=== PATIENT | male | born 1995 | race Two or more races ===

== ENCOUNTER 2021-01-11 18:54 | Emergency (ER) | payer MEDICAID ==
[~2021-01-11] VITALS: Ht 170.2 cm; Wt 68.2 kg
[2021-01-11 21:30] VITALS: BP 127/79
== END 2021-01-11 21:50 | disposition home or self-care (01) ==
LOC: EMS 18:55 → EDBD 18:55 → EMS 21:50
DX: S62.630B Displaced fracture of distal phalanx of right index finger, initial encounter for open fracture (principal); W22.8XXA Striking against or struck by other objects, initial encounter; Y93.89 Activity, other specified; Y92.89 Other specified places as the place of occurrence of the external cause; Y99.8 Other external cause status
CPT/HCPCS: 99283